=== PATIENT | female | born 1950 | race Caucasian/White ===

== ENCOUNTER 2017-06-05 14:07 | Outpatient (CLI) | payer MEDICARE, BC ==
--- NOTE | 2017-06-07 08:16 | XRAY Report ---
EXAM: CHEST RADIOGRAPHY EXAM DATE: 06/05/2017 02:21 PM. CLINICAL HISTORY: DRY COUGH. COMPARISON: None. TECHNIQUE: 2 views. FINDINGS: Lungs/Pleura: No focal opacities evident. No pleural effusion. No pneumothorax. Normal volumes. Mediastinum: Heart and mediastinal contours are unremarkable. IMPRESSION: Negative 2-view chest radiography. [facility] Referring Provider Line: [phone] SITE ID: [id number]
== END 2017-06-05 14:08 | disposition home or self-care (01) ==
LOC: DI 14:07
PROVIDERS: ATTEND Registered Nurse
DX: R05 Cough (principal)
CPT/HCPCS: 71046

== ENCOUNTER 2017-06-29 07:36 | Outpatient (CLI) | payer MEDICARE, BC ==
--- NOTE | 2017-06-29 12:20 | Ultrasound Report ---
ABDOMINAL ULTRASOUND LIMITED RIGHT UPPER QUADRANT: 06/29/2017. COMPARISON: No comparison. INDICATION: Right upper quadrant pain and tenderness. Suspected lipoma over the area. TECHNIQUE: Sonographic evaluation of the right upper quadrant was performed. FINDINGS: The liver is mildly and diffusely echogenic. Normal contour. No masses. 13.9 cm. The gallbladder appears unremarkable without stones, wall thickening, or adjacent fluid. The common duct measures 3 mm. The right kidney measures 10.1 cm and is grossly unremarkable without hydronephrosis, masses, or stones. No lipoma is demonstrated. IMPRESSION: MILD HEPATIC STEATOSIS. NO EVIDENCE OF LIPOMA. TD: 06/29/2017 12:19 SHAI
== END 2017-06-29 07:37 | disposition home or self-care (01) ==
LOC: DI 07:36
PROVIDERS: ATTEND Registered Nurse
DX: K76.0 Fatty (change of) liver, not elsewhere classified (principal)
CPT/HCPCS: 76705

== ENCOUNTER 2018-09-19 20:36 | Outpatient (CLI) | payer MEDICARE ==
--- NOTE | 2018-09-20 10:21 | Ultrasound Report ---
Reason: UNSPECIFIED ABDOMINAL PAIN Procedure Date: 09/19/2018 Accession Number: [id number] / [id number] Procedure: US - Abdomen Complete CPT Code: FULL RESULT: EXAM: ABDOMEN ULTRASOUND EXAM DATE: 09/19/2018 09:10 PM. CLINICAL HISTORY: Unspecified abdominal pain. COMPARISON: ABDOMEN LIMITED 06/29/2017 7:49 AM. TECHNIQUE: Real-time scanning was performed with static images obtained. FINDINGS: Liver: Liver background parenchyma is mildly coarse but otherwise within normal limits. Within the right lobe of the liver are 2 geographic appearing echogenic foci measuring 1.1 x 0.8 x 0.7 cm more anteriorly and 1.0 x 0.9 x 1.0 cm more posteriorly. These were not definitely demonstrated on the previous abdominal ultrasound and are generally nonspecific. Right lobe of the liver measures at least 15 cm. Main portal vein flow: Hepatopetal. Gallbladder: Normal. No stones, wall thickening, or sonographic Stevens's sign. Biliary System: Common bile duct measures 6 mm. No intrahepatic or extrahepatic ductal dilatation. Pancreas: Visualized portion is unremarkable. Kidneys: Right: 10.4 cm longitudinally. Normal. No contour-deforming mass, stones, or hydronephrosis. Left: 10.9 cm longitudinally. Normal. No contour-deforming mass, stones, or hydronephrosis. Spleen: 10.7 cm. Normal in size and echotexture. Aorta and Inferior Vena Cava: Unremarkable. Other: None. IMPRESSION: Demonstration of 2 echogenic foci measuring up to 1.1 cm in the right lobe of the liver which were not definitely demonstrated previously, possibly due to differences in technique. The sonographic appearance is nonspecific but most often demonstrated by hemangioma. Given that these were not seen previously, recommend consideration for definitive characterization by multiphase CT versus an initial 6-month followup ultrasound for stability to be followed by annual sonographic surveillance until at least two-year stability can be demonstrated. At that time, benignity could be inferred. [facility]
== END 2018-09-19 20:37 | disposition home or self-care (01) ==
LOC: DI 20:36
PROVIDERS: ATTEND Nurse Practitioner Family
DX: R16.0 Hepatomegaly, not elsewhere classified (principal)
CPT/HCPCS: 76700